=== PATIENT | male | born 1975 | race Caucasian/White ===

== ENCOUNTER 2018-01-18 16:07 | Emergency (ER) | payer MEDICAID ==
[~2018-01-18] VITALS: Ht 177.8 cm; Wt 88.5 kg
[2018-01-18 16:13] VITALS: Ht 177.8 cm; Wt 88.5 kg
[2018-01-18 17:08] LABS: BASOPHIL % 0.3 % (0-2); PLATELET COUNT 310 x10^3mcL (130-400); RED CELL DISTRIBUTION WIDTH 12.9 % (11.5-14.5)
[2018-01-18 17:12] LABS: AMPHETAMINE QUAL UR NONE DETECTED (NEG <=1000)
[2018-01-18 17:13] LABS: CALCIUM 9.1 mg/dL (8.5-10.1); CARBON DIOXIDE 30.4 mmol/L (21-32); CHLORIDE SERUM 100 mmol/L (98-107); CREATININE SERUM 0.7 mg/dL (0.7-1.3); GFR1 > 60 mL/min; GLUCOSE SERUM 118 mg/dL (74-106); POTASSIUM SERUM 3.7 mmol/L (3.5-5.1); SODIUM SERUM 136 mmol/L (136-145)
[2018-01-18 17:18] LABS: ALBUMIN 4.2 g/dL (3.4-5.0); ALKALINE PHOSPHATASE 75 U/L (46-116); ALT/SGPT 38 U/L (16-63); AMYLASE 59 U/L (25-115); AST/SGOT 24 U/L (15-37); BILIRUBIN TOTAL 1.4 mg/dL (0.20-1.00); LIPASE 146 IU/L (73-393); TOTAL PROTEIN, SERUM 7.9 g/dL (6.4-8.2)
[2018-01-19 00:10] VITALS: BP 126/74
== END 2018-01-19 00:10 | disposition short-term general hospital (02) ==
LOC: ED 16:07
PROVIDERS: Emergency Medicine
DX: R10.13 Epigastric pain (principal)
CPT/HCPCS: 36415; 83880; J2405; J2550; J3010; J3490; J7030; Q0092; Q0162